=== PATIENT | female | born 1965 | race African-American/Black ===

== ENCOUNTER 2025-01-31 08:17 | Day surgery (SDC) | payer OTHER ==
[~2025-01-31] VITALS: Ht 167.6 cm; Wt 95.5 kg
[~2025-01-31 08:17] MED LIST: HCTZ; PROPOFOL 1% ISO-OSM 1000 MG/100 ML BOTTLE ONE; SIMVASTATIN; SODIUM CHLORIDE 0.9% 1,000 ML ONE
[2025-01-31] MEDS: SODIUM CHLORIDE 0.9% 1,000 ML IV ONE (10:43)
[2025-01-31] MEDS ORDERED: OXYGEN THERAPY IH SCH (20:00)
== END 2025-01-31 12:30 | disposition home or self-care (01) ==
LOC: SURGERY 08:17
PROVIDERS: ATTEND Specialist
DX: K21.9 Gastro-esophageal reflux disease without esophagitis (principal); K44.9 Diaphragmatic hernia without obstruction or gangrene; K29.70 Gastritis, unspecified, without bleeding; J44.9 Chronic obstructive pulmonary disease, unspecified; I48.92 Unspecified atrial flutter; I10 Essential (primary) hypertension; I48.91 Unspecified atrial fibrillation; E11.9 Type 2 diabetes mellitus without complications; I25.10 Atherosclerotic heart disease of native coronary artery without angina pectoris; Z95.0 Presence of cardiac pacemaker
CPT/HCPCS: 43239; 88305; 93005; J2704; J7030